=== PATIENT | male | born 1945 | race African-American/Black ===

== ENCOUNTER 2017-12-26 14:41 | Outpatient (CLI) | payer BC ==
--- NOTE | 2017-12-26 16:29 | RAD ---
CERVICAL SPINE RADIOGRAPHS 4 VIEWS: DATE: 12/26/2017. PROVIDED CLINICAL HISTORY: Cervical stenosis. FINDINGS: Changes of anterior and posterior fusion are noted from C3 through C5. There is no evidence for hard greene loosening or migration. Cervical alignment appears normal without evidence for abnormal transit ional motion with flexion and extension with suboptimal visualization of the cervicothoracic junction . Prominent disk space narrowing and osteophyte formation are seen about C5-6 and C6-7. The visuali zed lung apices appear clear. No prevertebral soft tissue swelling apparent. IMPRESSION: Degenerative and postoperative changes involving the cervical spine. POS: [facility]
== END 2017-12-26 14:42 | disposition home or self-care (01) ==
LOC: BICRAD 14:41
PROVIDERS: ATTEND Neurological Surgery
DX: M48.02 Spinal stenosis, cervical region (principal); M47.892 Other spondylosis, cervical region; Z98.1 Arthrodesis status
CPT/HCPCS: 72050

== ENCOUNTER 2018-09-07 09:48 | Outpatient (CLI) | payer BC ==
--- NOTE | 2018-09-07 13:37 | MRI ---
MRI LUMBAR SPINE WITHOUT CONTRAST: HISTORY: Sciatica, right side low back pain. FINDINGS: There is mild chronic compression of L5 vertebral body. No marrow edema is seen. The conus medullar is ends at T12. There are broad-based disk bulges at multiple levels in the lumbar spine. There are facet hypertrophic ligamentum flavum hypertrophic changes at L2-3, L3-4, L4-5, and L5-S1 levels. L1-2: No focal disk herniation, central canal stenosis, or neural foraminal stenosis is seen. L2-3: No focal disk protrusion is seen. There is moderate central canal stenosis and bilateral late ral stenosis. No significant neural foraminal stenosis is noted. L3-4: There is no focal disk herniation. There is severe central canal stenosis with mild to modera te bilateral neural foraminal stenosis. L4-5: There is moderate central canal stenosis, moderate right and mild left neural foraminal stenos is. L5-S1: There is focally increased T2 signal in the left posterior disk consistent with annular tear. There is mild bilateral neural foraminal stenosis. IMPRESSION: 1. Lumbar spondylosis with multilevel stenotic changes as discussed above. 2. Left-sided annular tear involving the L5-S1 disk. POS: [facility]
== END 2018-09-07 09:49 | disposition home or self-care (01) ==
LOC: BICMRI 09:48
PROVIDERS: ATTEND Chiropractor
DX: M47.816 Spondylosis without myelopathy or radiculopathy, lumbar region (principal); M54.31 Sciatica, right side; M48.061 Spinal stenosis, lumbar region without neurogenic claudication; M48.07 Spinal stenosis, lumbosacral region; M48.8X7 Other specified spondylopathies, lumbosacral region
CPT/HCPCS: 72148

== ENCOUNTER 2024-01-12 07:55 | Outpatient (CLI) | payer BC ==
[2024-01-12] MEDS ORDERED: Iopamidol 370 76% 100 ML VIAL ONE (14:09)
[2024-01-12] MEDS ORDERED: GASTROGRAFIN 30 ML BOT ONE (14:09)
== END 2024-01-12 07:56 | disposition home or self-care (01) ==
LOC: CT 07:55
PROVIDERS: ATTEND Physician Assistant Medical
DX: R74.8 Abnormal levels of other serum enzymes (principal); K44.9 Diaphragmatic hernia without obstruction or gangrene; E04.1 Nontoxic single thyroid nodule; K86.89 Other specified diseases of pancreas
CPT/HCPCS: 36415; 74170; 82565; Q9963; Q9967